=== PATIENT | male | born 1995 ===

== ENCOUNTER 2019-06-22 10:01 | Emergency (ER) | payer SELFPAY ==
[~2019-06-22] VITALS: Ht 172.7 cm; Wt 100.7 kg
[2019-06-22 10:05] VITALS: BP 130/76; Ht 172.7 cm; Wt 100.7 kg
== END 2019-06-22 12:37 | disposition home or self-care (01) ==
LOC: ED 10:01
DX: S63.061A Subluxation of metacarpal (bone), proximal end of right hand, initial encounter (principal); W20.8XXA Other cause of strike by thrown, projected or falling object, initial encounter; Y93.89 Activity, other specified; Y92.89 Other specified places as the place of occurrence of the external cause; Y99.8 Other external cause status